=== PATIENT | male | born 1950 | race Caucasian/White ===

== ENCOUNTER 2019-10-04 18:36 | Emergency (ER) | payer OTHER, MEDICAID ==
[~2019-10-04] VITALS: Ht 175.3 cm; Wt 102.1 kg
[2019-10-04] MEDS ORDERED: TAMS-11 PO (19:17)
[2019-10-04] MEDS ORDERED: CAT.1 PO (19:18)
[2019-10-04] MEDS ORDERED: APIX5TAB4 PO (19:18)
[2019-10-04] MEDS ORDERED: DONE10TA44 PO (19:18)
[2019-10-04] MEDS ORDERED: MOM PO (19:18)
[2019-10-04] MEDS ORDERED: DIVA250T PO (19:18)
[2019-10-04] MEDS ORDERED: ANT30 PO (19:18)
[2019-10-04] MEDS ORDERED: CARV3.1246 PO (19:21)
[2019-10-04] MEDS ORDERED: SER25 PO (19:21)
[2019-10-04] MEDS ORDERED: BENA10TA PO (19:21)
[2019-10-04] MEDS ORDERED: CYAN250010 PO (19:21)
[2019-10-04] MEDS ORDERED: MULT1CAP34 PO (19:21)
--- NOTE | 2019-10-04 19:21 | NUR ---
PATIENT REMAINS IN HALLWAY AWAITING BED ASSIGNMENT WITH EMT'S, SEDATE AND UNCHANGED
[2019-10-04 19:22] VITALS: BP_SYST 132
--- NOTE | 2019-10-04 19:52 | NUR ---
ER Dr. GUTHRIE at bedside examining patient.
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
[2019-10-04 20:23] LABS: EOSINOPHILS # (AUTO) 0.3 K/uL (0.0-0.4); LYMPHOCYTES # (AUTO) 1.4 K/uL (1.0-5.5)
[2019-10-04 20:26] LABS: BASOPHILS % (AUTO) 0.4 % (0.0-2.0); EOSINOPHILS % (AUTO) 5.5 % (0.0-4.0); HEMATOCRIT 47.5 % (36-54); HEMOGLOBIN 15.6 g/dL (14.0-18.0); LYMPHOCYTES % (AUTO) 22.7 % (20.5-51.5); MEAN CORPUSCULAR HEMOGLOBIN 30 pg (27-31); MEAN CORPUSCULAR HGB CONC 33 % (32-36); MEAN CORPUSCULAR VOLUME 91 fL (79.0-98.0); MONOCYTES % (AUTO) 16.2 % (1.7-9.3); NEUTROPHILS # (AUTO) 3.3 K/uL (1.8-7.7); NEUTROPHILS % (AUTO) 55.2 % (40.0-70.0); PLATELET COUNT (AUTO) 185 K/uL (130-430); RED CELL DISTRIBUTION WIDTH 13.2 % (9.0-15.0); WHITE BLOOD COUNT (AUTO) 6.1 K/uL (4.8-10.8)
[2019-10-04 20:40] LABS: PROTHROMBIN TIME 9.9 SECS (9.5-12.5)
--- NOTE | 2019-10-04 20:55 | NUR ---
Patient to ER bed 5 to gown for evaluation. Side rails up.
[2019-10-04 21:10] LABS: CHOLESTEROL 212 mg/dL (<200); HDL CHOLESTEROL 30 mg/dL (>45); LDL CHOLESTEROL 135 mg/dL (<100); TRIGLYCERIDES 251 mg/dL (30-150); VALPROIC ACID 62 ug/mL (50-100)
[2019-10-04 21:14] LABS: ALCOHOL, BLOOD < 3 mg/dL (<10)
[2019-10-04 21:17] LABS: CHLORIDE 102 mmol/L (98-107); POTASSIUM 3.9 mmol/L (3.5-5.1); SODIUM SERUM 137 mmol/L (136-145)
[2019-10-04 21:18] LABS: ALANINE AMINOTRANSFERASE 28 U/L (12-78); ALBUMIN 3.2 g/dL (3.4-4.8); ANION GAP 7 (5-15); ASPARTATE AMINOTRANSFERASE 23 U/L (10-37); CALCIUM 8.6 mg/dL (8.4-11.0); CREATININE 1.19 mg/dL (0.55-1.30); GFR AFRICAN AMERICAN 78 mL/min (>90); GLUCOSE 81 mg/dL (70-99); TOTAL BILIRUBIN 0.3 mg/dL (0.0-1.0); UREA NITROGEN, BLOOD 15 mg/dL (8-21)
[2019-10-04 21:19] LABS: ACETAMINOPHEN < 1 ug/mL (1-30)
--- NOTE | 2019-10-04 21:45 | NUR ---
URINE COLLECTED AND SENT TO LAB. PT RESTING IN BED. NO SIGNS OF ACUTE DISTRESS.
[2019-10-04 22:13] LABS: BILIRUBIN,URINE NEGATIVE (NEGATIVE); BLOOD, URINE 1+ (NEGATIVE); CLARITY/URINE CLEAR (CLEAR); COLOR,URINE YELLOW (YELLOW); GLUCOSE,URINE NEGATIVE (NEGATIVE); KETONES,URINE NEGATIVE (NEGATIVE); LEUKOCYTE ESTERASE ,URINE NEGATIVE (NEGATIVE); NITRITE, URINE NEGATIVE (NEGATIVE); PROTEIN URINE NEGATIVE (NEGATIVE); UROBILINOGEN,URINE 0.2 (0.2-1.0)
--- NOTE | 2019-10-04 22:32 | NUR ---
PT IS SLEEPING IN BED. NO SIGNS OF ACUTE DISTRESS.
[2019-10-04 22:53] LABS: BARBITURATE, URINE NEGATIVE (NEG <=200); BENZODIAZEPINE, URINE NEGATIVE (NEG <=150); CANNABINOID, URINE NEGATIVE (NEG <=50); COCAINE, URINE NEGATIVE (NEG <=150); METHAMPHETAMINES SCREEN,URINE NEGATIVE (NEG <=500); OPIATE, URINE NEGATIVE (NEG <=100); PHENCYCLIDINE SCREEN,URINE NEGATIVE (NEG <=25); URINE AMPHETAMINE NEGATIVE (NEG <=500); URINE METHADONE NEGATIVE (NEG <=200); URINE OXYCODONE SCREEN NEGATIVE (NEG <=100); URINE PROPOXYPHENE SCREEN NEGATIVE (NEG <=300)
[2019-10-04 22:54] LABS: UR TRICYCLIC ANTIDEPRESSANTS POSITIVE (NEG <=300)
--- NOTE | 2019-10-04 23:12 | NUR ---
PT IS SLEEPING AND SNORING IN BED. NO SIGNS OF ACUTE DISTRESS. BREATHING EVEN AND UNLABORED.
[2019-10-04 23:34] LABS: BACTERIA,URINE FEW /HPF (None Seen); WBC,URINE 0-3 /HPF (0-3)
--- NOTE | 2019-10-05 00:45 | NUR ---
REPORT GIVEN TO ALAINA THOMAS AT [facility].
[2019-10-05 01:32] VITALS: BP_SYST 132
--- NOTE | 2019-10-05 01:33 | NUR ---
Patient to be transferred to [facility], ROOM 51B. Is being transferred due to higher level of care. Receiving facility has accepting physician and available space. ER physician has signed transfer form. Patient or responsible republican has agreed to transfer and signed form. Patient belongings inventoried and will be sent with patient. Copy of nursing notes, lab reports, EKG, Physicians Orders and X-rays to be sent with patient. Report called to ALAINA THOMAS at receiving facility. Receiving physician is EDMOND. [facility] has been called for transfer. ETA is NOW.
--- NOTE | 2019-10-05 01:33 | NUR ---
[facility] HERE TO TRANSPORT PT TO [facility]. REPORT GIVEN TO EMS.
== END 2019-10-05 01:32 ==
LOC: SED 18:36
DX: R45.6 Violent behavior (principal); I11.0 Hypertensive heart disease with heart failure; I50.9 Heart failure, unspecified; I48.91 Unspecified atrial fibrillation; G30.9 Alzheimer's disease, unspecified; F02.80 Dementia in other diseases classified elsewhere, unspecified severity, without behavioral disturbance, psychotic disturbance, mood disturbance, and anxiety; Z79.899 Other long term (current) drug therapy
CPT/HCPCS: 36415; 80053; 80061; 80164; 80307; 81000; 83036; 84484; 85025; 85610; 85730; 87081; 99285; G0480; G0481; G0482